=== PATIENT | male | born 1945 | race Caucasian/White ===

== ENCOUNTER 2025-02-24 09:38 | Outpatient (AMB) | payer MEDICARE, MEDICAID, SELFPAY ==
--- NOTE | 2025-02-24 09:45 | MHC.OFFVIS ---
Intake Visit Reasons: 6 mnts AD Allergies No Known Allergies Allergy (Verified 02/18/25 08:07) Medication List - Last Reconciled 02/24/25 by Lucila Del Cid MD albuterol sulfate 90 mcg/actuation 2 puffs inhalation Q6H PRN amlodipine 5 mg PO DAILY aspirin 81 mg PO DAILY donepezil 10 mg PO BEDTIME 90 days dutasteride 0.5 mg PO DAILY melatonin 3 mg PO BEDTIME PRN memantine (Namenda) 10 mg PO BID 90 days metoprolol tartrate 12.5 mg PO BID mirtazapine 7.5 mg PO BEDTIME pravastatin 80 mg PO BEDTIME sacubitril-valsartan 24-26 mg (Entresto) 1 tab PO BID sertraline 25 mg PO DAILY spironolactone 25 mg PO DAILY tamsulosin 0.4 mg PO BEDTIME HPI Comments Details: 79 years old man with obstructive sleep apnea on CPAP, atrial fibrillation with the Watchman device and multifactorial dementia. He was initially seen in 2022 with cognitive difficulties. 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 MRI of brain was okay. He was doing ok. No new issues. [facility] Medical History (Updated 02/24/25 @ 09:59 by Lucila Del Cid MD) Anxiety Atrial fibrillation Middle cerebral artery syndrome Cerebral infarct Alzheimer disease Multifactorial dementia Physical Exam Neuro Other: Mental Status: Alert and oriented to person, place, and time. Normal attention. Normal spontaneous speech, fluency, and comprehension. Cranial Nerves: CN II: Visual tavares full to confrontation, visual acuity intact. CN III, IV, : Pupils equal, round, reactive to light and accommodation. Extraocular movements are normal. CN V: Facial sensation is normal. CN VII: Facial movements symmetrical. CN VIII: Hearing intact to bedside conversation is normal. CN IX, X: Palate elevates symmetrically. CN XI: Shoulder shrug and head turn symmetrical. CN XII: Tongue midline without atrophy or fasciculations. Extrapyramidal: Full facial expressions and blinking. No rigidity. Movements are appropriate with no tremor or abnormality. Speech: Normal; no dysarthria or tremor. Assessment & Plan Assessment & Plan (1) Multifactorial dementia: Comment: CT brain WO at [facility] in Sep 2021: mod PT atrophy MRI brain WO at [facility] in Sep 2021: large R MCA embolic looking infarct and atrophy MRA brain at [facility] in Sep 2021: ok NICS at [facility] in Sep 2021: OK. Code(s): F03.90 - Unspecified dementia, unspecified severity, without behavioral disturbance, psychotic disturbance, mood disturbance, and anxiety Category: Medical (2) Alzheimer dementia: Code(s): G30.9 - Alzheimer's disease, unspecified; F02.80 - Dementia in other diseases classified elsewhere, unspecified severity, without behavioral disturbance, psychotic disturbance, mood disturbance, and anxiety Category: Medical Qualifiers: Alzheimer's disease onset: late onset Dementia severity: moderate Dementia behavioral or psychological symptom: with anxiety Qualified Code(s): G30.1 - Alzheimer's disease with late onset; F02.B4 - Dementia in other diseases classified elsewhere, moderate, with anxiety Plan Impression: 1. Multifactorial dementia 2. Alzheimer dementia 3. Right middle cerebral artery embolic looking infarct with underlying atrial fibrillation Recommendations: 1. Donepezil 10 mg a day 2. Memantine 10 mg twice a day 3. Sertraline 25 mg daily 4. Mirtazapine 7.5 mg at night Medications: New aspirin 81 mg PO DAILY melatonin 3 mg PO BEDTIME PRN sertraline 25 mg PO DAILY 90 tabs 1RF sacubitril-valsartan 24-26 mg (Entresto) 1 tab PO BID dutasteride 0.5 mg PO DAILY spironolactone 25 mg PO DAILY metoprolol tartrate 12.5 mg PO BID Refilled donepezil 10 mg PO BEDTIME 90 tabs 1RF 90 days Coding Level of Care Code Est Pt Level 4 (26560) Diagnoses Multifactorial dementia F03.90 Moderate late onset Alzheimer's dementia with anxiety G30.1; F02.B4 Alzheimer's disease onset: late onset Dementia severity: moderate Dementia behavioral or psychological symptom: with anxiety
--- OUTSIDE RECORDS SUMMARY | 2025-02-24 10:12 | XMS_ITS | Clinical Summary ---
Author Organization [employer] Address [address] [place] [address] [address] [place] [address] Care Team Providers Care Avionics Technician Name Role Phone Unavailable Primary Care Provider Unavailabl e Allergies Active Allergy Reactions Criticality Noted Date Comments Aspirin Nausea And Vomiting Low 08/29/2017 Other reaction(s): upset stomach Medications pravastatin (Pravachol) 80 MG tablet Take 80 mg by mouth. 2 Active furosemide (Lasix) 20 MG tablet Take 1 capsule by mouth. 2 Active sertraline (Zoloft) 25 MG tablet 0 Refills, Maintenance, 12/27/22 10:36:00 EDT, Partial fill upon patient request if the prescription is for a schedule II opioid drug. 3 Active tamsulosin (Flomax) 0.4 MG 24 hr capsule Take 0.4 mg by mouth. 2 Active ergocalciferol (Vitamin D-2) 1.25 MG (67068 UT) capsule take 1 capsule by oral route every week Active fesoterodine ER (Toviaz) 4 MG 24 hr tablet Take 1 tablet by mouth at bed time. Active lisinopril 10 MG tablet Take 10 mg by mouth. 2 Active omeprazole (PriLOSEC) [address] capsule Take 1 capsule by mouth at bed time. Active Albuterol Sulfate (ProAir RespiClick) 108 (90 Base) MCG/ACT aerosol powder Inhale 2 puffs every 4 (four) hours. Active dutasteride (Avodart) 0.5 MG capsule Take 0.5 mg by mouth. 3 Active amLODIPine (Norvasc) 5 MG tablet Take 5 mg by mouth in the morning. Active amoxicillin (Amoxil) 500 MG capsule Please take 4 CAPS of 500 MG one hour before your next appointment. 4 capsule 3 Active amoxicillin-cla vulanate (Augmentin) 875-125 MG tablet take 1 tablet by oral route every 12 hours 0 Active Active Problems Problem Noted Date Diagnosed Date Class 1 obesity 04/30/2024 Severe obesity 04/30/2024 Esophageal reflux 09/17/2023 RLS (restless legs syndrome) 09/17/2023 Polyneuropathy 09/17/2023 Thoracic ascending aortic aneurysm 09/17/2023 ILD (interstitial lung disease) 08/08/2022 Nasal congestion 08/08/2022 Nocturnal hypoxia 08/08/2022 Overview (04/30/2024): 06/29/2022 overnight oximetry on CPAP showed: 1. Lowest SPO2 is 85%. 2. Time under 88% is 8 minutes. 3. Patient spent with adequate oxygenation most of the time, no supplemental oxygen is needed. 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 His average oxygen is 92% and oxygen kae is 73%. He had signifcant oxygen desatruations(less than 88% for more then 5% of the study18%). Last Assessment & Plan: Untreated on 02/06/2022 CPAP 6-16cm sent to [facility]. PLMD (periodic limb movement disorder) 6 CKD (chronic kidney disease) stage 3, GFR 30-59 ml/min 09/01/2013 Atrial fibrillation 04/21/2012 Overview (04/30/2024): Following with hand in [facility]. Echocardiogram dated 10/27/2020 showing left ventricle moderately dilated, left ventricular wall thickness, normal, overall EF 50 to 55%, right ventricle mildly enlarged, could not assess diastolic function due to the presence of atrial fibrillation, right ventricle systolic function at low end of normal, no evidence of pulmonary hypertension. When compared to previous report of 02/16/2020 EF appeared improved. Allergic rhinitis 11/21/2011 BPH (benign prostatic hyperplasia) 11/21/2011 Overview (04/30/2024): Dr johnson (sp?) Diverticulosis 11/21/2011 HTN (hypertension) 11/21/2011 Hyperlipidemia 11/21/2011 Lumbago 11/21/2011 Social History Tobacco Use Types Packs/Day Years Used Date Smoking Tobacco: Former Cigarettes Passive Smoke Exposure: Never Smokeless Tobacco: Never Tobacco Cessation:Counseling Given: Not Answered Alcohol Use Standard Drinks/Week Comments Not Currently 0 (1 standard drink = 0.6 oz pur e alcohol) Sex and Gender Information Value Date Recorded Sex Assigned at Male 05/28/2022 10:33 AM EDT Legal Sex Male 10:33 AM EDT Gender Identity Male 05/28/2022 10:33 AM EDT Sexual Orientation Straight 05/28/2022 10 :33 AM EDT Last Filed Vital Signs Vital Sign Reading Time Taken Comments Blood Pressure 140/70 04/30/2024 10:53 AM EDT Pulse 60 03/18/2023 10:03 AM EDT Temperature - - Respiratory Rate - - Oxygen Saturation - - Inhaled Oxygen Concentration - - Weight - - Height - - Body Mass Index - - Plan of Treatment Health Maintenance Due Date Last Done Comments Depression Screening 1945 Diabetes: Hemoglobin A1C 1945 Lipid Panel 1945 SDOH Screening 1943 Alcohol/Substance Use Screening 1955 Zoster Vaccines (1 of 2) 1993 RSV Patients and Patients Aged 60 years or older (1 - 1-dose 75+ series) 2018 Dental X-Ray: Bitewings 08/30/2018 08/29/2017 Dental Oral Exam 10/30/2019 04/29/2019, , 08/29/2017 DTaP/Tdap/Td Vaccines (2 - Td or Tdap) 02/19/2022 02/20/2012 Pneumococcal Vaccine: 50+ Years (2 of 2 - PCV) 09/06/2022 09/06/2021, 02/20/2012 Dental Prophylaxis 09/19/2023 03/18/2023, 0 03/18/2019, 09/17/2018, Additional history exists COVID-19 Vaccine ( season) 2024 06/29/2021, 10/31/2020, 10/10/2020 Influenza Vaccine (#1) 2025 , 05/21/2022, 06/29/2021, Additional history exists Tobacco Screening 04/16/2025 04/16/2024 Dental X-Ray: Full Mouth 07/26/2026 07/25/2023, 02/0 07/2017 HIB Vaccines Aged Out No longer eligi ble based on patient's age to complete this topic HPV Vaccines Aged Out No longer eligi ble based on patient's age to complete this topic Hepatitis A Vaccines Aged Out No long er eligible based on patient's age to complete this topic Hepatitis B Vaccines Aged Out No long er eligible based on patient's age to complete this topic IPV Vaccines Aged Out No longer eligi ble based on patient's age to complete this topic Meningococcal B Vaccine Aged Out No l onger eligible based on patient's age to complete this topic Meningococcal Vaccine Aged Out No kamlesh zaida eligible based on patient's age to complete this topic RSV under 20 months Aged Out No longe r eligible based on patient's age to complete this topic Rotavirus Vaccines Aged Out No longer eligible based on patient's age to complete this topic Procedures Procedure Name Priority Date/Time Associated Diagnosis Comments PANORAMIC RADIOGRAPHIC IMAGE Routine 07/25/2023 11:00 AM EST Full PROPHYLAXIS - ADULT Routine 023 10:00 AM EDT PERIODIC ORAL EVALUATION - ESTABLISHED PATIENT Routine 04/29/2019 12:00 AM EDT INTRAORAL - COMPLETE SERIES OF RADIOGRAPHIC IMAGES Routine 08/29/2017 12:00 AM EST from Last 3 Months or Most Recently Relevant to Health Maintenance Insurance [place] ADULT
--- OUTSIDE RECORDS SUMMARY | 2025-02-24 10:12 | XMS_ITS | Clinical Summary ---
Author Organization [facility] Address [address] [place] [address] Care Team Providers Care Extrusion Die Repairer Name Role Phone Mira Barr DO Primary Care P rovider Allergies Active Allergy Reactions Criticality Noted Date Comments Aspirin Nausea And Vomiting Low 07/08/2020 Medications Medication Sig Dispensed Refills Start Date End Date Status omeprazole (PriLOSEC) 20 MG capsule Take 20 mg by mouth daily. 0 Active triamcinolone acetonide (KENALOG) 10 MG/ML injection Inject into the articular space once. 0 Active acetaminophen (TYLENOL) 325 MG tablet Take 650 mg by mouth every 6 (six) hours as needed for pain. 0 Active lisinopril (PRINIVIL,ZESTRIL) tablet 10 mg Take 10 mg by mouth daily. 0 Active Umeclidinium-Vilanter ol (Anoro Ellipta) 62.5-25 MCG/INH AEPB Inhale into the lungs. 0 Active albuterol (PROVENTIL HFA;VENTOLIN HFA) 108 (90 Base) MCG/ACT inhaler Inhale 2 puffs into the lungs every 6 (six) hours as needed for wheezing. 0 Active furosemide (LASIX) 20 MG tablet Take 20 mg by mouth 2 (two) times a day. 0 Active dutasteride (AVODART) 0.5 MG capsule Take 0.5 mg by mouth daily. 0 Active tamsulosin (FLOMAX) 0.4 MG CAPS Take 0.4 mg by mouth daily. 0 Active rivaroxaban (XARELTO) 15 MG TABS tablet Take by mouth. 0 Act rai amLODIPine (NORVASC) tablet 5 mg Take 5 mg by mouth daily. 0 Active pravastatin (PRAVACHOL) tablet 80 mg Take 80 mg by mouth daily. 0 Active Active Problems No known active problems Social History Tobacco Use Types Packs/Day Years Used Date Smoking Tobacco: Former Smokeless Tobacco: Never Alcohol Use Standard Drinks/Week Comments Yes 0 (1 standard drink = 0.6 oz pur e alcohol) occasional Sex and Gender Information Value Date Recorded Sex Assigned at Not on file Gender Identity Not on file Sexual Orientation Not on file Job Start Date Occupation Industry Not on file Not on file Not on file Last Filed Vital Signs Vital Sign Reading Time Taken Comments Blood Pressure 138/57 03/01/2022 1:44 PM EDT Pulse 48 03/01/2022 1:44 PM EDT Temperature 36.3 C (97.4 F) 03/01/2022 1:44 PM EDT Respiratory Rate - - Oxygen Saturation 99% 03/01/2022 8:11 AM EDT Inhaled Oxygen Concentration - - Weight 109.3 kg (241 lb) 07/08/2020 10:15 AM EST Height 167.6 cm (5' 6 ) 07/08/2020 10:15 AM EST Body Mass Index 38.9 07/08/2020 10:15 AM EST Plan of Treatment Health Maintenance Due Date Last Done Comments Depression Screening 1955 Preventative Health Evaluation 1961 Shingrix-Zoster Vaccine (1 of 2) 1993 Fall Risk Assessment 2008 RSV Adult > 60+ Yrs or (1 - 1-dose 75+ series) 2018 DTap / Tdap / Td (2 - Td or Tdap) 02/19/2022 02/20/2012 Pneumococcal Vaccine (2 of 2 - PCV) 09/06/2022 09/06/2021, 02/20/2012 COVID-19 Vaccine ( - season) 2024 06/29/2021, 10/31/2020, 10/16/2020 Influenza Vaccine (#1) 2025 , 04/11/2020, 05/27/2019, Additional history exists Hepatitis B Vaccines Aged Out No long er eligible based on patient's age to complete this topic RSV Ped < 20 months Aged Out No longe r eligible based on patient's age to complete this topic Care Teams Extrusion Die Repairer Relationship Specialty Start Date End Date Mira Barr DO PCP - General Post Office Clerk 06/15/20
--- OUTSIDE RECORDS SUMMARY | 2025-02-24 10:12 | XMS_ITS | Clinical Summary ---
Author Organization [facility] [address] [facility] Address [address] [place] [address] Phone Care Team Providers Care Pharmacy Billing Adjudicator Name Role Phone Harshal Acosta MD Primary Care Provider [phone] Allergies No known active allergies Medications tamsulosin (FLOMAX) 0.4 mg 24 hr capsule Take 1 capsule (0.4 mg total) by mouth 1 (one) time each day. 3 Active donepeziL (ARICEPT) 5 mg tablet 1 tablet (5 mg total). 3 Active cholecalciferol (VITAMIN D-3) 50 mcg (2,000 unit) capsule Take 1 capsule (2,000 Units total) by mouth 1 (one) time each day. 3 Active finasteride (PROSCAR) 5 mg tablet Take 1 tablet (5 mg total) by mouth. 2 Active fluticasone propionate (FLONASE) 50 mcg/actuation nasal spray Administer 1 spray into each nostril 1 (one) time each day. 2 Active acetaminophen (TYLENOL 8 HOUR) 650 mg 8 hr tablet Take 1 tablet (650 mg total) by mouth 1 (one) time each day if needed. 2 Active azelastine 205.5 mcg (0.15 %) spray,non-aeroso l Administer 1-2 sprays into affected nostril(s). 3 Active dutasteride (AVODART) 0.5 mg capsule Take 1 capsule (0.5 mg total) by mouth. 2 Active hydrocortisone (ANUSOL-HC) 2.5 % rectal cream 3 Active aspirin 81 mg EC tablet Take 1 tablet (81 mg total) by mouth 1 (one) time each day. 4 Active omeprazole OTC (PriLOSEC OTC) 20 mg EC tabletIndication s:Gastroesophage al reflux disease without esophagitis,Lopez ett's esophagus without dysplasia Take 1 tablet (20 mg total) by mouth 1 (one) time each day. Do not crush, chew, or split. 30 tablet 11 4 07/09/20 25 Active calcitrioL (ROCALTROL) 0.25 mcg capsule Take 1 capsule (0.25 mcg total) by mouth every other day. 45 each 3 5 08/14/19 26 Active pravastatin (PRAVACHOL) 80 mg tablet TAKE 1 TABLET BY MOUTH AT BEDTIME 90 tablet 5 Active melatonin 3 mg tablet TAKE 1 TO 2 TABLETS BY MOUTH AT BEDTIME NEEDED FOR INSOMNIA 180 tablet 3 5 Active spironolactone (ALDACTONE) 25 mg tablet 5 Active albuterol HFA (Ventolin HFA) 90 mcg/actuation inhalerIndicatio ns:Chronic obstructive pulmonary disease, unspecified COPD type ([facility] V24, [facility] V28) Inhale 2 puffs by mouth every 6 (six) hours if needed for wheezing or shortness of breath. 18 g 1 5 12/04/19 26 Active Active Problems Problem Noted Date Diagnosed Date Heart failure with mildly re duced ejection fraction ([facility] V24, [facility] V28) 10/16/2023 Idiopathic chronic gout without tophus 4 Thoracic ascending aortic aneurysm ([facility] V24) 09/17/2023 Esophageal reflux 09/17/2023 Assessment & Plan (07/21/2024 10:20 AM EST): Orders: pantoprazole (PROTONIX) 40 mg EC tablet; Take 1 tablet (40 mg total) by mouth 1 (one) time each day. Do not crush, chew, or split. RLS (restless legs syndrome) 09/17/2023 Polyneuropathy 09/17/2023 Nocturnal hypoxia 08/08/2022 Overview (09/17/2023): 06/29/2022 overnight oximetry on CPAP showed: 1. Lowest SPO2 is 85%. 2. Time under 88% is 8 minutes. 3. Patient spent with adequate oxygenation most of the time, no supplemental oxygen is needed. Nasal congestion 08/08/2022 ILD (interstitial lung disease) ([facility] V24, [facility] V28) 08/08/2022 Pulmonary fibrosis ([facility] V24, [facility] V28) Prediabetes 09/06/2021 Hyperparathyroidism ([facility] V24) 04/11/2020 H/O right nephrectomy 03/31/2020 Tubular adenoma 08/28/2019 Overview (09/17/2023): 08/17 CN, repeat 3 years Nephrolithiasis 08/28/2019 Overview (09/17/2023): Left kidney 08/17 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 His average oxygen is 92% and oxygen kae is 73%. He had signifcant oxygen desatruations(less than 88% for more then 5% of the study18%). Last Assessment & Plan: Untreated on 02/06/2022 CPAP 6-16cm sent to [facility] [place]. PLMD (periodic limb movement disorder) 6 CKD (chronic kidney disease) stage 3, GFR 30-59 ml/min (CMS/HCC V24, CMS/HCC V28) 09/01/2013 Atrial fibrillation (CMS/HCC V24, CMS/HCC V28) 0 04/21/2012 Overview (09/17/2023): Following with hand in [facility]. Echocardiogram dated 10/27/2020 showing left ventricle moderately dilated, left ventricular wall thickness, normal, overall EF 50 to 55%, right ventricle mildly enlarged, could not assess diastolic function due to the presence of atrial fibrillation, right ventricle systolic function at low end of normal, no evidence of pulmonary hypertension. When compared to previous report of 02/16/2020 EF appeared improved. HTN (hypertension) 11/21/2011 Hyperlipidemia 11/21/2011 Diverticulosis 11/21/2011 BPH (benign prostatic hyperplasia) 11/21/2011 Overview (09/17/2023): Dr johnson (sp?) Lumbago 11/21/2011 Allergic rhinitis 11/21/2011 Encounters Date Type Department Care Team Description 12/11/2024 Telephone Pulmonolgy - [place] [address] [address] Araceli Soto NP 12/04/2024 Telephone Pulmonolgy [facility] [address] [address] Araceli Soto NP 12/03/2024 1:25 PM EDT Office Visit Pulmonolgy - [place] [address] [address] Araceli Soto NP Chronic obstructive pulmonary disease, unspecified COPD type (CMS/HCC V24, CMS/HCC V28) (Primary Dx) from Last 3 Months Immunizations Name Administration Dates Next Due Influenza Quadravalent, 0.5m l (Fluad) 65yo and older 06/29/2021 Influenza Quadravalent, 0.5m l (Fluzone High-dose) 65yo and older 04/26/2023,05/21/2022 Influenza trivalent, 0.5mL ( Fluzone High-dose) 65yo and older 06/29/2021,04/11/2020,05/27/2019,06/02,04/22/2017,04/21/2015 [employer] SARS-CoV-2 COVID-19, mRNA, LNP-S, preservative free 06/29/2021,10/31/2020,10/16/2020,10/10 Pneumococcal polysaccharide 23 valent (Pneumovax 23) 2yo and older 09/06/2021,02/20/2012 Tdap Tetanus diptheria acell ular pertussis (Boostrix; Adacel) 7yo and older 02/20/2012 Surgical History Surgery Date Site/Laterality Comments NEPHRECTOMY PROCEDURE: HISTORICAL NEPHRECTOMY; COMMENT: right renal carcinoma 2006 BACK SURGERY PROCEDURE: HISTORICAL BACK SURGERY; COMMENT: disectomy lumbar 2005 COLONOSCOPY 12/23/15 PROCEDURE: HISTORICAL COLONOSCOPY; COMMENT: Diverticulosis, colon polyps x 3 CIRCUMCISION, NON- 08/2018 PROCEDURE: CIRCUMCISION, NOT PACEMAKER INSERTION Medical History Medical History Date Comments Atrial fibrillation ([facility] V24, [facility] V28) 04/21/2012 DX:Atrial fibrillation (HCC) Essential hypertension DX:Essent ial hypertension Esophageal reflux DX:Esophageal reflux Fear of flying DX:Fear of flyin g; COMMENT: lorazepam prn in past Claustrophobia DX:Claustrophobi a Nephrolithiasis DX:Nephrolithias is; COMMENT: dr serrano History of kidney cancer DX:Hist ory of kidney cancer History of tobacco abuse DX:Hist ory of tobacco abuse COPD, moderate ([facility] V24, [facility] V28) 2015 DX:COPD, moderate (HCC) RLS (restless legs syndrome) DX: RLS (restless legs syndrome) Polyneuropathy DX:Polyneuropath y Thoracic ascending aortic an eurysm ([facility] V24) DX:Thoracic ascending aortic aneurysm (HCC) Left inguinal hernia DX:Left ing uinal hernia; COMMENT: Containing part of the bladder Perry esophagus 12/25/2018 DX:Perry eso phagus; COMMENT: repeat in 3 years Hyperparathyroidism (CMS/HCC V24) DX:Hyperparathyroidism (HCC) Tubular adenoma 08/28/2019 DX:Tubular adeno ma; COMMENT: 08/17 CN, repeat 3 years Iron deficiency DX:Iron deficien cy H/O endoscopy 11/2018 DX:H/O endoscopy ; COMMENT: buster Family History Medical History Relation Name Comments Leukemia Father Other: Other Father Other: Other Mother Stroke Mother Autoimmune disease Neg Hx Blindness Neg Hx Breast cancer Neg Hx Cataracts Neg Hx Colon cancer Neg Hx Coronary artery disease Neg Hx Diabetes Neg Hx Glaucoma Neg Hx Heart attack Neg Hx Heart failure Neg Hx Hyperlipidemia Neg Hx Hypertension Neg Hx Macular degeneration Neg Hx Mental illness Neg Hx Prostate cancer Neg Hx Sleep apnea Neg Hx Strabismus Neg Hx Thyroid disease Neg Hx Relation Name Status Comments Brother 1 Alive Brother 2 Alive Father Mother Social History Tobacco Use Types Packs/Day Years Used Date Smoking Tobacco: Former Cigarettes Q uit: 07/29/2001 Smokeless Tobacco: Never Alcohol Use Standard Drinks/Week Comments No 0 (1 standard drink = 0.6 oz pur e alcohol) Interpersonal Safety Answer Date Record ed Physical Abuse 07/07/2024 Verbal Abuse 07/07/2024 Sex and Gender Information Value Date Recorded Sex Assigned at Male 05/26/2024 8:07 AM EDT Legal Sex Male 9:33 PM EST Gender Identity Male 05/26/2024 8:07 AM EDT Sexual Orientation Straight 05/26/2024 8: 07 AM EDT Obstetrics History Last Filed Vital Signs Vital Sign Reading Time Taken Comments Blood Pressure 122/80 12/03/2024 1:23 PM EDT Pulse 77 12/03/2024 1:23 PM EDT Temperature 36.6 C (97.8 F) 12/03/2024 1:23 PM EDT Respiratory Rate 18 12/03/2024 1:23 PM EDT Oxygen Saturation 96% 12/03/2024 1:23 PM EDT Inhaled Oxygen Concentration - - Weight 102 kg (225 lb) 12/03/2024 1:23 PM EDT Height 167.6 cm (5' 6 ) 12/03/2024 1:23 PM EDT Body Mass Index 36.32 12/03/2024 1:23 PM EDT Plan of Treatment Upcoming Encounters Date Type Department Care Team (Late st Contact Info) Description 03/05/2025 11:00 AM EDT Office Visit Pulmonolgy - [place] [address] [facility] [address] [place] [phone] Araceli Soto NP 175 [facility] [address] [place] [address] 08/25/2025 1:00 PM EST Office Visit [place] [facility] [address] [place] [address] Cedrick Ferguson MD [address] [facility] [address] [place] [address] 09/02/2025 11:00 AM EST Office Visit Bariatric Surgery - [place] [address] [facility] [address] [place] [phone] Marco Hunt MD [address] [facility] [address] [place] [address] Health Maintenance Due Date Last Done Comments Zoster Vaccines (1 of 2) 1962 RSV Immunization Adult Patients (1 - 1-dose 75+ series) 2018 DTaP,Tdap,and Td Vaccines (2 - Td or Tdap) 02/19/2022 02/20/2012 Falls Risk Assessment 07/07/2022 Medicare Annual Wellness Visit 07/07/2022 Social Influencers of Health Screening 07/07/2022 Pneumococcal Vaccine: 50+ Years (2 of 2 - PCV) 09/06/2022 09/06/2021, 02/20/2012 COVID-19 Vaccine ( - season) 2024 06/29/2021, 10/31/2020, 10/16/2020, Additional history exists Depression Screening 07/29/2024 Influenza Vaccine (#1) 2025 , 05/21/2022, 06/29/2021, Additional history exists Hypertension/CHF/CAD Annual BMP Blood Test 08/07/2025 08/07/2024, 06/30/2024, 05/14/2024, Additional history exists Cholesterol Screening (Lipid Panel) 05/14/2029 05/14/2024, 05/14/2024 HIB Vaccines Aged Out No longer eligi [...] on patient's age to complete this topic MMR Vaccines Aged Out No longer eligi ble based on patient's age to complete this topic Meningococcal ACWY Vaccine Aged Out N o longer eligible based on patient's age to complete this topic Meningococcal B Vaccine Aged Out No l onger eligible based on patient's age to complete this topic RSV Immunization Patients Under 20 months Aged Out No longer eligible based on patient's age to complete this topic Varicella Vaccines Aged Out No longer eligible based on patient's age to complete this topic Medical Devices Implanted Type Area Head Of Quality Device Identifier Shelf Expiration Date Model / Serial / Lot Cardiac Pacemaker Cardiac Pacemaker Left: Chest Procedures Procedure Name Priority Date/Time Associated Diagnosis Comments BASIC METABOLIC PANEL Routine 08/07/2024 9:45 AM EST Polyneuropathy COPD, moderate ([facility] V24, [facility] V28) Obstructive sleep apnea Lumbago Nocturnal hypoxia Nasal congestion ILD (interstitial lung disease) ([facility] V24, [facility]28) Pulmonary fibrosis ([facility] V24, [facility] V28) Pulmonary nodule Allergic rhinitis HTN (hypertension) Atrial fibrillation ([facility] V24, [facility] V28) Thoracic ascending aortic aneurysm ([facility] V24) Heart failure with mildly reduced ejection fraction ([facility] V24, [facility] V28) Vitamin D deficiency CKD (chronic kidney disease) stage 3, GFR 30-59 ml/min ([facility] V24, [facility] V28) Diverticulosis Esophageal reflux Anxiety and depression H/O right nephrectomy Hyperparathyroidism ([facility] V24) Nephrolithiasis RLS (restless legs syndrome) 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 BPH (benign prostatic hyperplasia) Hyperlipidemia Prediabetes LIPID PANEL Routine 05/14/2024 from Last 3 Months or Most Recently Relevant to Health Maintenance Results * (ABNORMAL) Basic metabolic panel (08/07/2024 9:45 AM EST) Sodium 142 133 - 145 mmol/L LAB CHEMISTRY METHOD 08/07/2024 12:33 PM [facility] Potassium 4.4 3.5 - 5.5 mmol/L LAB CHEMISTRY METHOD 08/07/2024 12:33 PM [facility] Chloride 108 96 - 110 mmol/L LAB CHEMISTRY METHOD 08/07/2024 12:33 PM [facility] CO2 29 21 - 32 mmol/L LAB CHEMISTRY METHOD 08/07/2024 12:33 PM [facility] Anion Gap 5 3 - 11 LAB CHEMISTRY METHOD 08/07/2024 12:33 PM [facility] Glucose 97 70 - 100 mg/dL LAB CHEMISTRY METHOD 08/07/2024 12:33 PM [facility] BUN 18 5 - 25 mg/dL LAB CHEMISTRY METHOD 08/07/2024 12:33 PM [facility] Creatinine 1.33(H) 0.70 - 1.30 mg/dL LAB CHEMISTRY METHOD 08/07/2024 12:33 PM [facility] eGFR 54(L) >=60 mL/min/1. 73m2 LAB CHEMISTRY METHOD 08/07/2024 12:33 PM [facility] Comment:Calculation based on the Chronic Kidney Disease Epidemiology Collaboration (CKD-EPI) equation refit without adjustment for race. BUN/Creatinine Ratio 13.5 LAB CHEMISTRY METHOD 08/07/2024 12:33 PM [facility] Calcium 8.7 8.5 - 10.5 mg/dL LAB CHEMISTRY METHOD 08/07/2024 12:33 PM [facility] Blood Venous blood specimen / Unknown Venipuncture / Unknown 08/07/2024 9:45 AM EST 08/07/2024 9:45 AM EST Shorty Omalley MD LAB BLOOD ORDERABLES Final Re sult [facility] [address] [place] [address], * (ABNORMAL) Lipid panel (05/14/2024) LDL/HDL Ratio 3 <=4 Triglycerides 91 <=150 mg/dL Cholesterol 209(A) <=200 mg/dL HDL 63 >=40 mg/dL LDL Cholesterol 128(A) <=100 mg/dL Blood Venous blood specimen / Unknown Historical Provider LAB BLOOD ORDERABLES Evy l Result from Last 3 Months or Most Recently Relevant to Health Maintenance Insurance [place]ICARE [place]ICAID [place] Advance Directives Documents on File Type Date Recorded Patient Hostel Parent Expl anation Health Care Decision (hx) 03/07/2022 AD SCHAEFER DIRECTIVE Health Care Decision (hx) 03/07/2022 AD SCHAEFER DIRECTIVE Health Care Decision (hx) 03/07/2022 AD SCHAEFER DIRECTIVE Health Care Decision (hx) 03/07/2022 AD SCHAEFER DIRECTIVE Care Teams Pharmacy Billing Adjudicator Relationship Specialty Start Date End Date Harshal Acosta MD [address] [place] [id number] PCP - General Internal Medicine 06/15/21
--- OUTSIDE RECORDS SUMMARY | 2025-02-24 10:12 | XMS_ITS | Encounter Summary ---
Author Organization [facility] Address [address] [address] Phone Care Team Providers Care Car Customizer Name Role Phone Unavailable Primary Care Provider Unavailabl e Reason for Referral * Consultation (Elective) - Closed Specialty Diagnoses / Procedures Referred By Nicolas cruz Referred To Contact Diagnoses FINN (obstructive sleep apnea) Ayush Meza MD Phone: tel: fax: [place]to[email or web address] [address] Phone: tel: Referral ID Status Reason Start Date Expiration Date Visits Re quested Visits Authorized [id number] Closed 06/28/2020 06/28/2021 1 1 Encounter Details Date Type Department Care Team (Latest Contact Info) Description 06/28/2020 Transcribe [facility] [address] [place] [address] [address] Floor, [address] [place] [address] Portillo Gomez MD 22 [facility], [address] [address] [email or web address] FINN (obstructive sleep apnea) (Primary Dx); Obesity, unspecified classification, unspecified obesity type, unspecified whether serious comorbidity present Social History Tobacco Use Types Packs/Day Years Used Date Smoking Tobacco: Never Assessed Sex and Gender Information Value Date Recorded Sex Assigned at Not on file Legal Sex Male 7:41 PM EST Gender Identity Not on file Sexual Orientation Not on file documented as of this encounter Plan of Treatment Scheduled Referrals Name Type Priority Associated Diagnoses Order Schedule Ambulatory referral to [facility] Sleep Medicine Outpatient Referral Routine FINN (obstructive sleep apnea) Ordered: 06/28/2020 documented as of this encounter Visit Diagnoses Diagnosis FINN (obstructive sleep apnea)- Primary Obstructive sleep apnea (adult) (pediatric) Obesity, unspecified classification, unspecified obesity type, unspecified whether serious comorbidity present documented in this encounter Additional Source Comments The information contained in this document represents components of the legal health record. It is not the complete legal health record.[facility]
--- OUTSIDE RECORDS SUMMARY | 2025-02-24 10:12 | XMS_ITS ---
Author Name [facility] Organization Unknown Care Team Organization Name Specialty Phone Email Start Date End Da te [facility] Araceli Soto Primary Care 10/03/2022 03/16/2024 [facility] NITA SETHI Primary Care 06/05/2022
== END 2025-02-24 10:04 | disposition home or self-care (01) ==
LOC: HO.HSM 09:39
PROVIDERS: PCP Internal Medicine; Visit Provider Psychiatry & Neurology Neurology
DX: G30.1 Alzheimer's disease with late onset (principal); F02.B4 Dementia in other diseases classified elsewhere, moderate, with anxiety
CPT/HCPCS: 99214

== ENCOUNTER → 2025-02-24 09:38 | Outpatient (BNVA) | payer MEDICARE, MEDICAID, SELFPAY | PROVIDERS: PCP Internal Medicine; Visit Provider Psychiatry & Neurology Neurology | DX: G30.1 Alzheimer's disease with late onset (principal); F02.B4 Dementia in other diseases classified elsewhere, moderate, with anxiety | CPT/HCPCS: 99212 ==